=== PATIENT | female | born 1980 | race Caucasian/White ===

== ENCOUNTER 2018-06-23 17:42 | Emergency (ER) | payer OTHER ==
[2018-06-23] MEDS ORDERED: PROPARACAINE HCL OPTH 15ML BTL OPTH ONE ×2 (18:11→18:18)
--- NOTE | 2018-06-23 18:24 | Emergency Department Record ---
History of Present Illness - General Chief complaint: Eye Problem Stated complaint: EYE PAIN Time Seen by Provider: 06/23/18 18:18 Source: Patient Mode of Arrival: Ambulatory Limitations: No limitations Travel/Exposure to [facility] [place] Within 21 Days of Symptoms: No - History of Present Illness Initial comments: 37 yo female presents to ED for evaluation of pain and photophobia to the left eye after accidentally getting a facial cleanser into the eye approximately 11 hours ago. Patient reports pain and photophobia, also reprots irritation and watering due to her pain symptoms. Patient denies health problems at her baseline. chief complaint: Eye pain, Eye injury Onset/Timin -: Hour(s) Onset Description: Gradual Location: Left eye Place: Home If Injury: None Eye Symptoms: Burning, Blurry vision Severity: Moderate Severity scale (1-10): 7 Consistency: Constant Context: Other Associated Symptoms: None Treatments Prior to Arrival: None - Related Data Hx Tetanus Toxoid Vaccination: Yes Home Medications Medication Instructions Recorded Confirmed Last Taken Multivit,Calc,Mins/Iron/Folic 1 each PO DAILY 06/23/18 06/23/18 Unknown [Women's Daily Formula Caplet] Allergies Allergy/AdvReac Type Severity Reaction Status Date / Time No Known Drug Allergies Allergy Verified 06/23/18 17:50 Travel Screening - Travel/Exposure Within Last 30 Days Have you traveled within the last 30 days?: No Review of Systems Constitutional: Denies: Chills, Fever, Malaise, Night sweats Eyes: Reports: Eye pain, Photophobia, Vision change. Denies: Eye discharge ENT: Denies: Congestion, Ear pain, Epistaxis Respiratory: Denies: Cough, Dyspnea Cardiovascular: Denies: Chest pain, Dyspnea on exertion Endocrine: Denies: Fatigue Gastrointestinal: Denies: Abdominal pain, Nausea, Vomiting Genitourinary: Denies: Incontinence, Retention Musculoskeletal: Denies: Arthralgia, Back pain, Gout, Joint swelling Skin: Denies: Bruising, Change in color Neurological: Denies: Abnormal gait, Confusion, Headache Psychiatric: Denies: Anxiety Hematological/Lymphatic: Denies: Anemia, Blood Clots Past Medical History - SOCIAL HISTORY Smoking Status: Never smoker Alcohol Use: None Drug Use: None - RESPIRATORY Hx Respiratory Disorders: No - CARDIOVASCULAR Hx Cardio Disorders: No - NEURO Hx Neuro Disorders: No - GI Hx GI Disorders: No - Hx Genitourinary Disorders: No - ENDOCRINE Hx Endocrine Disorders: No - MUSCULOSKELETAL Hx Musculoskeletal Disorders: No - PSYCH Hx Psych Problems: No - HEMATOLOGY/ONCOLOGY Hx Hematology/Oncology Disorders: No Family Medical History Any Significant Family History?: No Physical Exam - General General Appearance: Alert, Oriented x3, Cooperative, Moderate distress Limitations: No limitations - Head Head exam: Atraumatic, Normocephalic, Normal inspection Head exam detail: negative: Abrasion, Contusion, Sierra's sign, General tenderness, Hematoma, Laceration - Eye Eye exam: Conjunctival injection, Other (NO corneal FB is identified on examination, no flouresceing updake is present, there is no FB present on eversion of the upper/lower lids on examination.). negative: Periorbital swelling, Periorbital tenderness, Scleral icterus - ENT Ear exam: negative: Auricular hematoma, Auricular trauma Nasal Exam: negative: Active bleeding, Discharge, Dried blood, Foreign body Mouth exam: negative: Drooling, Laceration, Muffled voice, Tongue elevation - Neck Neck exam: Normal inspection. negative: Meningismus, Tenderness - Respiratory Respiratory exam: Normal lung sounds bilaterally. negative: Respiratory distress, Rhonchi, Stridor, Wheezes - Cardiovascular Cardiovascular Exam: Regular rate, Normal rhythm, Normal heart sounds - GI/Abdominal GI/Abdominal exam: Soft. negative: Rebound, Rigid, Tenderness - Rectal Rectal exam: Deferred - exam: Deferred - Extremities Extremities exam: Normal inspection. negative: Pedal edema, Tenderness - Back Back exam: Denies: CVA tenderness (R), CVA tenderness (L) - Neurological Neurological exam: Alert, Normal gait, Oriented X3 - Psychiatric Psychiatric exam: Normal affect, Normal mood - Skin Skin exam: Normal color. negative: Abrasion Type of lesion: negative: abrasion Course Vital Signs 06/23/18 17:43 Temperature 99.0 F Pulse Rate 72 Respiratory 18 Rate Blood Pressure 123/92 Pulse Ox 96 - Reevaluation(s) Reevaluation #1: 06/23/18 18:23 Patient was seen and examined: pH is 7-8 on examination following alcaine administration There is no corneal FB present on flouresceine staining No abrasions to the cornea are present on examination And there are no foreign bodies present on upper/lower lid eversion. Reevaluation #2: 06/23/18 18:39 VA was performed: 20/25 Left 20/20 Right Anterior chamber appears clear on examination as well. Reevaluation #3: 06/23/18 18:51 Slit lamp examination was performed as well, anterior chamber appears clear with no cells/flare present. Will initiate treatment with Gentamicin as directed with instructions to follow- up with her eye doctor in 1-3 days as directed. Disposition Disposition: Discharge Clinical Impression: Corneal injury of right eye Qualifiers: Encounter type: initial encounter Qualified Code(s): S05.8X1A - Other injuries of right eye and orbit, initial encounter Disposition: Home, Self-Care Condition: (2) Stable Instructions: Corneal Abrasion (ED) Additional Instructions: Return to ED if your symptoms worsen or if you have any concerns. Follow-up with your eye doctor in 1-3 days as directed. Forms: Patient Portal Access Time of Disposition: 18:52 Quality - Quality Measures Quality Measures: N/A - Blood Pressure Screening Does Patient Have Any of the Following: No Blood Pressure Classification: Hypertensive Reading Systolic Measurement: 123 Diastolic Measurement: 92 Screening for High Blood Pressure: < First Hypertensive BP, F/U Documented > [ G8950] First Hypertensive Follow-up Interventions: Referral to alternative/primary care provider.
[2018-06-23] MEDS ORDERED: GENTAMICIN SULFATE 0.3% OPTH 5 ML BTL OPTH SCH (19:00)
== END 2018-06-23 19:11 | disposition home or self-care (01) ==
LOC: ER 17:42
DX: S05.8X1A Other injuries of right eye and orbit, initial encounter (principal); H53.142 Visual discomfort, left eye; H57.12 Ocular pain, left eye; Z77.098 Contact with and (suspected) exposure to other hazardous, chiefly nonmedicinal, chemicals; Y93.E8 Activity, other personal hygiene; Y92.009 Unspecified place in unspecified non-institutional (private) residence as the place of occurrence of the external cause
CPT/HCPCS: 99283

== ENCOUNTER 2019-01-21 11:11 | Emergency (ER) | payer SELFPAY ==
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
--- NOTE | 2019-01-23 07:34 | RADIOLOGY REPORT ---
EXAM: RIGHT HAND HISTORY: FELL TODAY. PAIN AT THE RIGHT THUMB. TECHNIQUE: Three views of the right hand were obtained. Comparison: None. Encounter: Initial. FINDINGS: The bones appear intact. There is no visible acute fracture or dislocation. There are no significant degenerative changes. IMPRESSION: NO ACUTE PATHOLOGY IDENTIFIED. JOB NUMBER: [id number] MTDD
== END 2019-01-21 12:16 | disposition home or self-care (01) ==
LOC: ER 11:11
DX: S69.91XA Unspecified injury of right wrist, hand and finger(s), initial encounter (principal); W01.0XXA Fall on same level from slipping, tripping and stumbling without subsequent striking against object, initial encounter
CPT/HCPCS: 99283

== ENCOUNTER 2019-04-17 21:20 | Emergency (ER) | payer BC ==
[2019-04-17] MEDS ORDERED: 0.9 % SODIUM CHLORIDE 1,000 ML BAG IV ONE (22:19)
[2019-04-17 22:38] LABS: ABSOLUTE NEUTROPHIL COUNT 4.45; BASO % 0.2 % (0-6); EOS % 3.2 % (0-6); GRAN % 50.2 % (47-80); HEMATOCRIT 41.4 % (35.0-47.0); HEMOGLOBIN 14.1 gm/dl (11.6-16.0); MEAN CELL VOLUME 86.8 fl (81-97); MEAN CORPUSCULAR HEMOGLOBIN 29.6 pg (27-33); MEAN CORPUSCULAR HGB CONC 34.1 g/dl (32-36); MEAN PLATELET VOLUME 12.2 fl (7.4-10.4); MONO % 5.4 % (0-9); PLATELET COUNT 256 K/uL (130-400); RED BLOOD COUNT 4.77 M/uL (3.80-5.40); RED CELL DISTRIBUTION WIDTH 13.2 % (11.5-14.5); WHITE BLOOD COUNT W/O DIFF 8.9 K/uL (4.2-12.2)
[2019-04-17 22:39] LABS: URINE APPEARANCE CLEAR; URINE BILIRUBIN NEGATIVE (NEGATIVE); URINE BLOOD NEGATIVE (NEGATIVE); URINE COLOR YELLOW; URINE GLUCOSE (UA) NEGATIVE (NEGATIVE); URINE KETONE NEGATIVE (NEGATIVE); URINE LEUKOCYTE ESTERASE SMALL (NEGATIVE); URINE NITRITE NEGATIVE (NEGATIVE); URINE PROTEIN NEGATIVE (NEGATIVE); URINE UROBILINOGEN 0.2 E.U./dL (0.20 - 1.00)
[2019-04-17 22:47] LABS: BLOOD UREA NITROGEN 15 mg/dL (6-20); CREATININE 0.7 mg/dL (0.5-0.9); EST GLOMERULAR FILTRATION RATE > 60 mL/min
[2019-04-17 22:50] LABS: GLUCOSE,RANDOM 132 mg/dL (74-109)
[2019-04-17 22:56] LABS: HCG,QUALITATIVE URINE NEGATIVE (NEGATIVE); URINE BACTERIA FEW; URINE RBC 0 - 2 (NONE SEEN); URINE WBC 0 - 2 (0-2/hpf)
--- NOTE | 2019-04-17 23:22 | Emergency Department Record ---
History of Present Illness - General Chief Complaint: Headache Migraine Stated Complaint: L SIDE FACE/ARM WENT NUMB/ GARCIA/METAL TASTE Time Seen by Provider: 04/17/19 22:10 Source: Patient Mode of Arrival: Ambulatory Limitations: No limitations - History of Present Illness Initial Comments: pt had a sudden onset of garcia and facial and l arm numbness and a metal taste in her mouth. she has never had anything like this before. numbness has resolved but headache remains MD Complaint: Headache Onset/Timin -: Hour(s) Onset Description: Sudden Location: Diffuse Severity: Moderate Severity scale (1-10): 5 Quality: Different than previous headaches, Other Consistency: Constant Worsens With: None Context: Occured at rest Associated Symptoms: Tingling/numbness Treatments Prior to Arrival: None - Related Data Allergies Allergy/AdvReac Type Severity Reaction Status Date / Time No Known Drug Allergies Allergy Verified 01/21/19 11:22 Travel Screening - Travel/Exposure Within Last 30 Days Have you traveled within the last 30 days?: No - Travel/Exposure Within Last Year Have you traveled outside the [place] in the last year?: No - Additonal Travel Details Have you been exposed to anyone with a communicable illness?: No - Travel Symptoms Symptom Screening: None Review of Systems Reviewed: No additional complaints except as noted below Constitutional: Reports: As per HPI. Denies: Chills, Fever, Malaise, Night sweats, Weakness, Weight change Eyes: Reports: As per HPI. Denies: Eye discharge, Eye pain, Photophobia, Vision change ENT: Reports: As per HPI. Denies: Congestion, Dental pain, Ear pain, Epistaxis, Hearing loss, Throat pain Respiratory: Reports: As per HPI. Denies: Cough, Dyspnea, Hemoptysis, Stridor, Wheezes Cardiovascular: Reports: As per HPI. Denies: Arrhythmia, Chest pain, Dyspnea on exertion, Edema, Murmurs, Orthopnea, Palpitations, Paroxysmal nocturnal dyspnea, Rheumatic Fever, Syncope Endocrine: Reports: As per HPI. Denies: Fatigue, Heat or cold intolerance, Polydipsia, Polyuria Gastrointestinal: Reports: As per HPI. Denies: Abdominal pain, Constipation, Diarrhea, Hematemesis, Hematochezia, Melena, Nausea, Vomiting Genitourinary: Reports: As per HPI. Denies: Abnormal menses, Discharge, Dyspareunia, Dysuria, Frequency, Hematuria, Incontinence, Retention, Urgency Musculoskeletal: Reports: As per HPI. Denies: Arthralgia, Back pain, Gout, Joint swelling, Myalgia, Neck pain Skin: Reports: As per HPI. Denies: Bruising, Change in color, Change in hair/nails, Lesions, Pruritus, Rash Neurological: Reports: As per HPI, Headache. Denies: Abnormal gait, Confusion, Numbness, Paresthesias, Seizure, Tingling, Tremors, Vertigo, Weakness Psychiatric: Reports: As per HPI. Denies: Anxiety, Auditory hallucinations, Depression, Homicidal thoughts, Suicidal thoughts, Visual hallucinations Hematological/Lymphatic: Reports: As per HPI. Denies: Anemia, Blood Clots, Easy bleeding, Easy bruising, Swollen glands Past Medical History - SOCIAL HISTORY Smoking Status: Former smoker Alcohol Use: None Drug Use: None - RESPIRATORY Hx Respiratory Disorders: No Hx Pulmonary Embolism: No - CARDIOVASCULAR Hx Cardio Disorders: No - NEURO Hx Neuro Disorders: No - GI Hx GI Disorders: No - Hx Genitourinary Disorders: No Hx UTI: No - ENDOCRINE Hx Endocrine Disorders: No - MUSCULOSKELETAL Hx Musculoskeletal Disorders: No - PSYCH Hx Psych Problems: No - HEMATOLOGY/ONCOLOGY Hx Hematology/Oncology Disorders: No Family Medical History Any Significant Family History?: Yes Hx Diabetes: Father, Mother Hx Heart Disease: Father, Grandparents Hx HTN: Father Physical Exam - General General Appearance: Alert, Oriented x3, Cooperative, Mild distress - Head Head exam: Normal inspection - Eye Eye exam: Normal appearance, PERRL, EOMI Pupils: Normal accommodation - ENT ENT exam: Normal exam, Mucous membranes moist, Normal external ear exam, Normal orophraynx, TM's normal bilaterally Ear exam: Normal external inspection. negative: External canal tenderness Nasal Exam: Normal inspection. negative: Discharge, Sinus tenderness Mouth exam: Normal external inspection, Tongue normal Teeth exam: Normal inspection. negative: Dental caries Throat exam: Normal inspection. negative: Tonsillar erythema, Tonsillar exudate - Neck Neck exam: Normal inspection, Full ROM. negative: Tenderness - Respiratory Respiratory exam: Normal lung sounds bilaterally. negative: Respiratory distress - Cardiovascular Cardiovascular Exam: Regular rate, Normal rhythm, Normal heart sounds - GI/Abdominal GI/Abdominal exam: Soft, Normal bowel sounds. negative: Tenderness - Rectal Rectal exam: Deferred - exam: Deferred - Extremities Extremities exam: Normal inspection, Full ROM, Normal capillary refill. negative: Tenderness - Back Back exam: Reports: Normal inspection, Full ROM. Denies: Muscle spasm, Rash noted, Tenderness - Neurological Neurological exam: Alert, CN II-XII intact, Normal gait, Oriented X3 - Psychiatric Psychiatric exam: Normal affect, Normal mood - Skin Skin exam: Dry, Intact, Normal color, Warm Course Vital Signs 04/17/19 21:34 Temperature 99.5 F Pulse Rate [ 88 Left] Respiratory 16 Rate Blood Pressure 125/94 [Left Arm] Pulse Ox 99 - Reevaluation(s) Reevaluation #1: 04/18/19 00:53 ct neg, pt feels better Medical Decision Making - Lab Data Result diagrams: 04/17/19 22:30 04/17/19 22:30 Lab Results 04/17/19 04/17/19 04/17/19 Range/Units 22:30 22:30 22:30 WBC 8.9 (4.2-12.2) K/uL RBC 4.77 (3.80-5.40) M/uL Hgb 14.1 (11.6-16.0) gm/dl Hct 41.4 (35.0-47.0) % MCV 86.8 (81-97) fl MCH 29.6 (27-33) pg MCHC 34.1 (32-36) g/dl RDW 13.2 (11.5-14.5) % Plt Count 256 (130-400) K/uL MPV 12.2 H (7.4-10.4) fl Gran % 50.2 (47-80) % Lymphocytes % 41.0 (16-45) % Monocytes % 5.4 (0-9) % Eosinophils % 3.2 (0-6) % Basophils % 0.2 (0-6) % Absolute Neutrophils 4.45 Sodium 139 (136-145) mmol/L Potassium 3.8 (3.4-4.5) mmol/L Chloride 103 (98-107) mmol/L Carbon Dioxide 25.0 (22-29) mmol/L Anion Gap 11.0 (7-16) BUN 15 (6-20) mg/dL Creatinine 0.7 (0.5-0.9) mg/dL Estimated GFR > 60 mL/min Random Glucose 132 H (74-109) mg/dL Calcium 9.1 (8.6-10.0) mg/dL Urine Color Yellow Urine Appearance Clear Urine pH 5.5 (5.0-8.0) Ur Specific Powell <= 1.005 (1.002-1.030) Urine Protein Negative (NEGATIVE) Urine Glucose (UA) Negative (NEGATIVE) Urine Ketones Negative (NEGATIVE) Urine Blood Negative (NEGATIVE) Urine Nitrite Negative (NEGATIVE) Urine Bilirubin Negative (NEGATIVE) Urine Urobilinogen 0.2 (0.20 - 1.00) E.U./dL Ur Leukocyte Esterase Small H (NEGATIVE) Urine RBC 0 - 2 (NONE SEEN) Urine WBC 0 - 2 (0-2/hpf) Ur Epithelial Cells 7 - 10 (FEW) Urine Bacteria Few Urine HCG, Qual Negative (NEGATIVE) Disposition Disposition: Discharge Clinical Impression: Atypical migraine Disposition: Home, Self-Care Condition: (1) Good Instructions: Migraine Headache (ED) Additional Instructions: follow up with family doctor and with neurologist. return sooner if worse Forms: Patient Portal Access Quality - Quality Measures Quality Measures: N/A - Blood Pressure Screening Does Patient Have Any of the Following: No Blood Pressure Classification: Normal BP Reading Systolic Measurement: 114 Diastolic Measurement: 65 Screening for High Blood Pressure: < Normal BP, F/U Not Required > [G8783]
[2019-04-17] MEDS ORDERED: KETOROLAC 30 MG/ML VIAL IVP ONE (23:24)
[2019-04-18] MEDS ORDERED: METOCLOPRAMIDE HCL 10 MG/2 ML VIAL IVP ONE (00:07)
[2019-04-18] MEDS ORDERED: DIPHENHYDRAMINE HCL 50 MG/ML VIAL IVP ONE (00:07)
--- NOTE | 2019-04-19 14:27 | CT SCAN REPORT ---
EXAM: CT OF THE BRAIN WITHOUT CONTRAST HISTORY: HEADACHE. LEFT ARM AND FACIAL NUMBNESS BEGINNING THREE HOURS AGO. TECHNIQUE: Routine noncontrast CT of the brain was obtained. Comparison: None. FINDINGS: The ventricles and subarachnoid spaces are normal in size. No area of abnormally increased or decreased attenuation is noted throughout the brain substance. No abnormal extraaxial fluid collection is seen. No acute skull abnormality. There is minor mucosal thickening within the left maxillary sinus. The visualized paranasal sinuses and mastoid air cells are clear. The orbits as visualized are unremarkable. IMPRESSION: 1. NEGATIVE NONCONTRAST CT OF THE BRAIN. 2. MINOR MUCOSAL THICKENING IN THE LEFT MAXILLARY SINUSES. JOB NUMBER: [id number] MTDD
== END 2019-04-18 01:07 | disposition home or self-care (01) ==
LOC: ER 21:20
DX: G43.809 Other migraine, not intractable, without status migrainosus (principal); R20.0 Anesthesia of skin; Z87.891 Personal history of nicotine dependence
CPT/HCPCS: 99284 ×2; 96374; 96375; 85025; 80048; 81001; 81025; 70450; J1885; J1200; J2765; J7030

== ENCOUNTER 2019-06-07 21:15 | Emergency (ER) | payer BC ==
--- NOTE | 2019-06-07 21:55 | Emergency Department Record ---
History of Present Illness - General Chief Complaint: Knee injury Stated Complaint: LT KNEE PAIN Time Seen by Provider: 06/07/19 21:54 Source: Patient Mode of Arrival: Ambulatory Limitations: No limitations - History of Present Illness Initial Comments: 38 yo female presents to ED for evaluation of left knee pain and swelling that began earlier today. Patient reports recent abrasion to the affected knee 3 weeks ago following a [id number] while carrying in groceries. Patient reports that the area had been healing well until today. Patient reports swelling to the infrapatellar region, reports increased activity playing with her son on the ground over the weekend. Patient denies fevers, chills, or redness to the affected area. MD Complaint: Other (Knee pain/swelling) Onset/Timin -: Week(s) Injury: Knee: Left Type of Injury: Blunt Place: Home Severity: Moderate Severity scale (1-10): 7 Improves With: Nothing Worsens With: Palpation, Weight bearing Context: Fall Associated Symptoms: Swelling - Related Data Allergies Allergy/AdvReac Type Severity Reaction Status Date / Time No Known Drug Allergies Allergy Verified 01/21/19 11:22 Travel Screening - Travel/Exposure Within Last 30 Days Have you traveled within the last 30 days?: No - Travel Symptoms Symptom Screening: None Review of Systems Constitutional: Denies: Chills, Fever, Malaise, Night sweats Eyes: Denies: Eye discharge, Eye pain ENT: Denies: Congestion, Ear pain, Epistaxis Respiratory: Denies: Cough, Dyspnea Cardiovascular: Denies: Chest pain, Dyspnea on exertion Endocrine: Denies: Fatigue, Heat or cold intolerance Gastrointestinal: Denies: Abdominal pain, Nausea, Vomiting Genitourinary: Denies: Incontinence, Retention Musculoskeletal: Reports: Myalgia. Denies: Arthralgia, Back pain Skin: Denies: Bruising, Change in color Neurological: Denies: Abnormal gait, Confusion, Headache, Seizure Psychiatric: Denies: Anxiety Hematological/Lymphatic: Denies: Anemia, Blood Clots Past Medical History - SOCIAL HISTORY Smoking Status: Former smoker Alcohol Use: None Drug Use: None - RESPIRATORY Hx Respiratory Disorders: No Hx Pulmonary Embolism: No - CARDIOVASCULAR Hx Cardio Disorders: No - NEURO Hx Neuro Disorders: No - GI Hx GI Disorders: No - Hx Genitourinary Disorders: No Hx UTI: No - ENDOCRINE Hx Endocrine Disorders: No - MUSCULOSKELETAL Hx Musculoskeletal Disorders: No - PSYCH Hx Psych Problems: No - HEMATOLOGY/ONCOLOGY Hx Hematology/Oncology Disorders: No Family Medical History Any Significant Family History?: Yes Hx Diabetes: Father, Mother Hx Heart Disease: Father, Grandparents Hx HTN: Father Physical Exam - General General Appearance: Alert, Oriented x3, Cooperative, No acute distress Limitations: No limitations - Head Head exam: Atraumatic, Normocephalic, Normal inspection Head exam detail: negative: Abrasion, Contusion, Sierra's sign, General tenderness, Hematoma, Laceration - Eye Eye exam: Normal appearance. negative: Conjunctival injection, Periorbital swelling, Periorbital tenderness, Scleral icterus - ENT Ear exam: negative: Auricular hematoma, Auricular trauma Nasal Exam: negative: Active bleeding, Discharge, Dried blood, Foreign body Mouth exam: negative: Drooling, Laceration, Muffled voice, Tongue elevation Throat exam: negative: Tonsillar erythema, Tonsillomegaly, R peritonsillar mass, L peritonsillar mass - Neck Neck exam: Normal inspection. negative: Meningismus, Tenderness - Respiratory Respiratory exam: Normal lung sounds bilaterally. negative: Rales, Respiratory distress, Rhonchi, Stridor - Cardiovascular Cardiovascular Exam: Regular rate, Normal rhythm, Normal heart sounds - GI/Abdominal GI/Abdominal exam: Soft. negative: Rebound, Rigid, Tenderness - Rectal Rectal exam: Deferred - exam: Deferred - Extremities Extremities exam: Tenderness, Other (Fluid-filled bursa to the infra-patellare region, no erythema, fluctuance, or induration present. Symptoms appear c/w bursa, no evidence for infection/abscess.). negative: Calf tenderness, Pedal edema - Back Back exam: Denies: CVA tenderness (R), CVA tenderness (L) - Neurological Neurological exam: Alert, Normal gait, Oriented X3 - Psychiatric Psychiatric exam: Normal affect, Normal mood - Skin Skin exam: Normal color. negative: Abrasion Type of lesion: negative: abrasion Course Vital Signs 06/07/19 21:44 Temperature 98.5 F Pulse Rate [ 81 Pulse Ox Probe] Respiratory 20 Rate Blood Pressure 120/93 [Left Arm] Pulse Ox 99 - Reevaluation(s) Reevaluation #1: 06/07/19 Patient was seen and examined Physical examination appears c/w infra-patellar bursa, no evidence for abscess on examination. Patient ambulates without difficulty, no clinical evidence for fracture, patient is in agreement that radiographs are not needed. Recommended symptomatic care including jamila wrap, ibuprofen ice, and rest as directed. Patient appears stable for discharge at this time. Disposition Disposition: Discharge Clinical Impression: Bursitis Qualifiers: Bursitis location: knee Knee bursitis location: infrapatellar bursitis Laterality: left Qualified Code(s): M70.52 - Other bursitis of knee, left knee Disposition: Home, Self-Care Condition: (2) Stable Instructions: Knee Bursitis (ED) Additional Instructions: Return to ED if your symptoms worsen or if you have any concerns. Ibuprofen, ice, jamila wrap as directed. Follow-up with your family doctor in 3-5 days as directed. Forms: Patient Portal Access Time of Disposition: 21:55 Quality - Quality Measures Quality Measures: N/A - Blood Pressure Screening Does Patient Have Any of the Following: No Blood Pressure Classification: Hypertensive Reading Systolic Measurement: 120 Diastolic Measurement: 93 Screening for High Blood Pressure: < First Hypertensive BP, F/U Documented > [G8950] First Hypertensive Follow-up Interventions: Referral to alternative/primary care provider.
== END 2019-06-07 22:00 | disposition home or self-care (01) ==
LOC: ER 21:15
DX: M70.52 Other bursitis of knee, left knee (principal)
CPT/HCPCS: 99282